=== PATIENT | female | born 1980 | race Caucasian/White ===

== ENCOUNTER 2020-09-27 10:34 | Outpatient (CLI) | payer OTHER, SELFPAY ==
[2020-09-27 10:57] LABS: Basophils Absolute Auto 0.03 K/mm3 (0.00-0.10); Basophils Percent Auto 0.4 % (0.0-1.0); Eosinophils Absolute Auto 0.09 K/mm3 (0.02-0.50); Eosinophils Percent Auto 1.2 % (1.0-6.0); Hematocrit 41.9 % (35.0-49.0); Hemoglobin 13.3 g/dL (12.0-15.0); Immature Granulocyte Absolute 0.03 K/mm3 (0.00-0.00); Immature Granulocyte Percent A 0.4 % (0.0-0.0); Lymphocytes Absolute Auto 1.88 K/mm3 (1.10-4.50); Lymphocytes Percent Auto 24.1 % (18.0-42.0); Mean Corpuscular HGB Conc 31.7 g/dL (32.0-36.0); Mean Corpuscular Hemoglobin 26.2 pg (27.0-31.0); Mean Corpuscular Volume 82.5 fL (78.0-102.0); Mean Platelet Volume 9.2 fl (9.2-11.8); Monocytes Absolute Auto 0.48 K/mm3 (0.10-0.90); Monocytes Percent Auto 6.2 % (2.0-11.0); Neutrophils Absolute Auto 5.3 K/mm3 (1.7-7.2); Neutrophils Percent Auto 67.7 % (50.0-70.0); Platelet Count Result 284 K/mm3 (150-420); Red Blood Count 5.08 M/mm3 (4.20-5.40); Red Cell Distribution Width 13.6 % (11.6-14.4); White Blood Count 7.8 K/mm3 (4.8-10.8)
[2020-09-27 11:31] LABS: Alanine Aminotransferase 27 U/L (14-59); Alkaline Phosphatase 96 U/L (46-116); Anion Gap 9 mmol/L (8-16); Aspartate Amino Transferase 13 U/L (15-37); Bilirubin,Total 0.3 mg/dL (0.00-1.00); Blood Urea Nitrogen 10 mg/dL (7-18); Calcium 9.2 mg/dL (8.5-10.1); Carbon Dioxide 27 mmol/L (21-32); Chloride 104 mmol/L (98-108); Creatine Kinase 63 U/L (26-192); Estimated Glomerular Filt Rate > 60; Glucose 86 mg/dL (70-99); Osmolality Calculated 288 mOsm/kg (285-295); Potassium 4.2 mmol/L (3.5-5.1); Sodium 140 mmol/L (136-145); Total Protein 8.2 g/dL (6.4-8.2)
[2020-09-27 11:48] LABS: Creatine Kinase MB < 0.50 ng/mL (0.00-5.00); Troponin I < 4.0 ng/L (0.00-60.4)
== END 2020-09-27 10:35 | disposition home or self-care (01) ==
LOC: CHSLAB 10:40
PROVIDERS: PCP Family Medicine; Visit Provider Family Medicine
DX: R07.89 Other chest pain (principal)
CPT/HCPCS: 36415; 80053; 82550; 82553; 84484; 85025

== ENCOUNTER 2024-03-27 23:37 | Emergency (ER) | payer OTHER, SELFPAY ==
--- NOTE | ~2024-03-27 | CT_ITS ---
EXAMINATION: CT brain wo con DATE: 03/28/2024 00:56 INDICATION: Seizure. Head injury. TECHNIQUE: Computed tomography (CT) of the head was performed without intravenous contrast. The mA wa s adjusted according to patient size. Iterative reconstruction technique was employed. Exam dose: 60 5.33 mGy-cm total exam DLP. COMPARISON: None FINDINGS: No intracranial mass lesion or hemorrhage or cerebrovascular accident. No midline shift or mass effect. Normal ventricular size. Normal [place]-white matter differentiation. No subdural or epidur al hematoma is detected. The orbital Nearly complete opacification of mastoid sinus. The paranasal sinuses and mastoid air cells are other beach unremarkable. Contents are unremarkable. IMPRESSION: Complete opacification left sphenoid sinus; otherwise negative examination Reviewed, dictated and finalized at [facility]. Reviewed, dictated and finalized at [facility].
--- NOTE | ~2024-03-27 | CT_ITS ---
EXAMINATION: CT abdomen pelvis wo con DATE: 03/28/2024 00:56 INDICATION: Abdominal pain TECHNIQUE: Computed tomography (CT) of the abdomen and pelvis was performed without intravenous contr ast. Automated exposure control and iterative reconstruction technique were employed. Exam dose: 854 .06 mGy-cm total exam DLP. COMPARISON: None. FINDINGS: The lung bases are clear. No pericardial or pleural effusion. Heart size is within normal r angela. Status post cholecystectomy. The liver, spleen, pancreas and bile ducts and pancreatic duct are unremarkable. Normal morphology of the adrenal glands. There are 2 punctate nonobstructing upper pole right renal calculi. Lower pole 6.3 x 7.7 mm left renal calculus with attenuation 1470 Hounsfield units. No ureteral calculus or hydroureteronephrosis. No renal space occupying mass lesion is evident on this limited noncontrast examination. Normal caliber of the abdominal aorta. No intraperitoneal or retroperitoneal or pelvic mass lesion or adenopathy or ascites. Small sliding hiatal hernia. Normal appendix. No bowel obstruction, bowel wall thickening, pneumatosis or intraperitoneal free air is evident. The uterus, adnexal areas and urinary bladder are unremarkable. Normal caliber of the abdominal aorta. No intraperitoneal or retroperitoneal or pelvic mass lesion or adenopathy or ascites. Small fat-containing umbilical hernia. No suspicious osteolytic or osteoblastic lesions. IMPRESSION: Status post cholecystectomy Bilateral nonobstructive nephrolithiasis Normal appendix Small sliding hiatal hernia. Reviewed, dictated and finalized at [facility]. Reviewed, dictated and finalized at [facility].
[2024-03-27 23:35] VITALS: BP 114/86; PULSE 62; RESP 14; TEMP 37.1; O2SAT 99
--- NOTE | 2024-03-27 23:43 | ECG_ITS ---
SEE SCANNED COPY FOR CONFIRMED REPORT MTDD
[2024-03-27 23:49] VITALS: O2SAT 98
[2024-03-27 23:51] VITALS: O2SAT 98
[2024-03-27 23:53] VITALS: PULSE 70
[2024-03-28] MEDS: SODIUM CHLORIDE 0.9% IV 1,000 ML 999 ML IV CONT (00:13)
[2024-03-28 00:15] LABS: Basophils Percent Auto 0.4 % (0.2-1.2); Eosinophils Absolute Auto 0.1 K/mm3 (0-0.3); Eosinophils Percent Auto 1.4 % (0-4.4); Hematocrit 36.6 % (37.0-47.0); Hemoglobin 11.8 g/dL (12.0-15.0); Immature Granulocyte Absolute 0.03 K/mm3 (0.00-0.031); Immature Granulocyte Percent A 0.3 % (0-0.5); Lymphocytes Absolute Auto 2.43 K/mm3 (0.9-3.2); Lymphocytes Percent Auto 25.8 % (18.3-44.2); Mean Corpuscular HGB Conc 32.2 g/dl (32-36); Mean Corpuscular Hemoglobin 26.2 pg (26-34); Mean Corpuscular Volume 81.3 fl (80-100); Mean Platelet Volume 9.2 fl (7.4-10.4); Monocytes Absolute Auto 0.6 K/mm3 (0.1-0.6); Monocytes Percent Auto 6.6 % (2.6-8.5); Neutrophils Absolute Auto 6.2 K/mm3 (1.3-6.7); Neutrophils Percent Auto 65.5 % (45.5-73.1); Platelet Count Result 260 k/mm3 (150-375); Red Cell Distribution Width 14.1 % (11.5-14.5); White Blood Count 9.4 K/mm3 (4.5-10.0)
--- NOTE | 2024-03-28 00:26 | ED.GENADULT ---
HPI - General Adult General Chief complaint: Seizure Stated complaint: Seizures Time Seen by Provider: 03/27/24 23:42 History of Present Illness HPI narrative: Patient 43-year-old female who presents emergency department with chief complaint of seizures. Patient reports that she has a remote history of seizures and reports that they were secondary to syncope and also stress induced. Patient reports she was taking Keppra until 2020 and has been off of that since then the patient reports that her last seizure was in 2020 reports that she has been under lot of stress and had a syncopal episode earlier today where she struck her head the patient also reports she has had abdominal pain and then this evening she had several generalized seizures. the patient reports that she does have abdominal pain at this time reports that she struck her head she reports no neck pain Related Data Allergies Allergy/AdvReac Type Severity Reaction Status Date / Time iodine Allergy Rash Verified 03/27/24 23:53 morphine Allergy Anaphylaxis Verified 03/27/24 23:53 povidone-iodine Allergy Rash Verified 03/27/24 23:53 [From Betadine] sulfamethoxazole Allergy Anaphylaxis Verified 03/27/24 23:53 [From Bactrim] trimethoprim [From Bactrim] Allergy Anaphylaxis Verified 03/27/24 23:53 Review of Systems Review of Systems: A 10 system review of systems was completed on the patient and is negative except for what is stated in the HPI. Nursing and ancillary documentation was reviewed. Exam Narrative: GENERAL: Well-appearing, well-nourished, and in no acute distress. HEAD: Normocephalic, atraumatic. EYES: PERRLA and EOMI. ENT: Nares clear, no rhinorrhea or epistaxis. Mucous membranes moist. NECK: Supple. CHEST: Clear to auscultation. No respiratory distress. HEART: Regular rate and rhythm. No murmur heard. Normal peripheral pulses. ABDOMEN: Soft, diffuse tenderness to palpation, nondistended, normal active bowel sounds. EXTREMITIES: Normal range of motion. No edema. SKIN: Warm, dry, no rash. NEURO: No focal deficits. Alert and oriented x3. PSYCH: Normal mood and affect. Course Vital Signs Vital signs: Vital Signs Temperature 37.1 C 03/27/24 23:35 Pulse Rate 62 03/27/24 23:35 Respiratory Rate 14 03/27/24 23:35 Blood Pressure 114/86 03/27/24 23:35 Pulse Oximetry 99 03/27/24 23:35 Oxygen Delivery Room Air 03/27/24 23:35 Temperature 37.1 C 03/27/24 23:35 Pulse Rate 59 L 03/28/24 03:59 Respiratory Rate 14 03/28/24 03:59 Blood Pressure 112/78 03/28/24 03:59 Pulse Oximetry 100 03/28/24 03:59 Oxygen Delivery Room Air 03/27/24 23:51 Medical Decision Making [facility] Narrative Medical decision making narrative: differential diagnosis includes dysrhythmia, seizure, electrolyte abnormality, head injury, intra-abdominal infection laboratory studies were obtained on the patient showed white count 9.4 electrolytes are within normal limits procalcitonin normal urinalysis showed no evidence UTI CT head showed no acute abnormality CT scan of the abdomen pelvis showed a small hiatal hernia and distal esophagus thickening given the patient's prior history of seizure disorder and is currently been off of her medications the patient will be restarted on Keppra patient was given a 1 g load in the emergency department illness started on 750 b.i.d. Vital Signs Vital Signs: Vital Signs Temperature 37.1 C 03/27/24 23:35 Pulse Rate 62 03/27/24 23:35 Respiratory Rate 14 03/27/24 23:35 Blood Pressure 114/86 03/27/24 23:35 Pulse Oximetry 99 03/27/24 23:35 Oxygen Delivery Room Air 03/27/24 23:35 Temperature 37.1 C 03/27/24 23:35 Pulse Rate 59 L 03/28/24 03:59 Respiratory Rate 14 03/28/24 03:59 Blood Pressure 112/78 03/28/24 03:59 Pulse Oximetry 100 03/28/24 03:59 Oxygen Delivery Room Air 03/27/24 23:51 Lab Data 03/27/24 23:57 03/27/24 2
[2024-03-28 00:28] LABS: Appearance Urine Clear (Clear); Bilirubin Urine Negative (Negative); Blood Urine Negative (Negative); Color Urine Yellow (Yellow); Glucose Urine UA Negative (Negative); Ketones Urine Negative (Negative); Leukocyte Esterase Ur Negative LEU/UL (Negative); Nitrate Urine Negative (Negative); Protein Urine Negative (Negative); Urobilinogen Urine 0.2 mg/dL (<2.0); pH Urine 6.5 (5.0-9.0)
[2024-03-28 00:28] LABS: Alanine Aminotransferase 27 U/L (6-35); Alkaline Phosphatase 79 U/L (38-126); Anion Gap 10 mmol/L (4-12); Aspartate Amino Transferase 25 U/L (14-36); Bilirubin,Total 0.3 mg/dL (0.2-1.3); Blood Urea Nitrogen 9 mg/dL (7-17); Carbon Dioxide 25 mmol/L (22-30); Chloride 106 mmol/L (98-107); Estimated CRCL calculation 102 ml/min; Estimated Glomerular Filt Rate > 60; Glucose 113 mg/dL (65-110); Lipase 246 U/L (23-300); Magnesium 1.7 mg/dL (1.6-2.3); Potassium 3.3 mmol/L (3.4-5.0); Sodium 141 mmol/L (137-145)
[2024-03-28 00:29] LABS: Specific Grav Ur 1.003 (1.001-1.035)
[2024-03-28 00:31] LABS: Add Urine Microscopic? NO
[2024-03-28 00:32] LABS: Lactic Acid Reflex 1.6 mmol/L (0.7-2.0)
[2024-03-28 00:42] LABS: Procalcitonin < 0.0 ng/mL
[2024-03-28 02:20] VITALS: BP 109/82; PULSE 60; RESP 16; O2SAT 99
[2024-03-28 03:59] VITALS: BP 112/78; PULSE 59; RESP 14; O2SAT 100
[2024-03-28] MEDS: levETIRAcetam 1000MG/NACL100ML 1,000 MG/100 ML BAG 400 MG IVPB (04:54)
[2024-03-28] MEDS: ACETAMINOPHEN 500 MG TABLET 1000 MG PO (04:54)
[2024-03-28 05:07] VITALS: BP 124/80; PULSE 83; RESP 17; O2SAT 97
== END 2024-03-28 05:08 | disposition home or self-care (01) ==
PROVIDERS: Emergency Provider Emergency Medicine
DX: R56.9 Unspecified convulsions (principal); K44.9 Diaphragmatic hernia without obstruction or gangrene; R10.9 Unspecified abdominal pain; R94.31 Abnormal electrocardiogram [ECG] [EKG]; Z90.49 Acquired absence of other specified parts of digestive tract; N20.0 Calculus of kidney
CPT/HCPCS: 36415; 70450; 74176; 80053; 81001; 81003; 81025; 83605; 83690; 83735; 84145; 85025; 93005; 96361; 96374; 99284; A9270; J1953; J7030